=== PATIENT | female | born 1990 | race Caucasian/White ===

== ENCOUNTER 2022-04-07 15:41 | Emergency (ER) | payer MEDICAID, SELFPAY ==
[2022-04-07] VITALS (7 sets, daily range): BP systolic 128–155; BP diastolic 88–106; PULSE 89–112; RESP 18–20; TEMP 36.6–36.7; O2SAT 98–100; BMI 30.1
--- NOTE | 2022-04-07 16:11 | XR_ITS ---
FINAL REPORT CLINICAL HISTORY: recent sternotomy, drainage COMPARISON: 09/14/2019 FINDINGS: SINGLE-VIEW CHEST There is cardiomegaly. The patient is status post median sternotomy. There are small pleural effusions with mild right base atelectasis There is no pneumothorax. IMPRESSION: Small pleural effusions with right base atelectasis. Reviewed, Interpreted and Dictated by Puneet Trujillo III, MD Transcribed by Lolita Cespedes Authenticated and [facility]
--- NOTE | 2022-04-07 16:22 | PC.NURSE ---
faxed request to [facility] for medical records
--- NOTE | 2022-04-07 16:40 | ECG_ITS ---
APPROVED REPORT Exam: Resting ECG HR:104 bpm ECG Measurements Heart Rate 104 AXES ID 149 P -16 QRSd 68 QRS 12 QT 338 T -63 QTc 399 Conclusion SINUS TACHYCARDIA LOW QRS VOLTAGE IN PRECORDIAL LEADS Late r wave progression ABNORMAL ECG UNCONFIRMED REPORT Electronically signed by : Isacc Abernathy MD 04/07/2022 21:55:05
[2022-04-07 16:50] LABS: Chloride 107 mmol/L (98-107); Sodium 141 mmol/L (136-145)
[2022-04-07 16:53] LABS: Alanine Aminotransferase 37 U/L (12-78); Albumin Level 3.4 g/dl (3.5-5.0); Alkaline Phosphatase 100 U/L (38-126); Aspartate Amino Transferase 33 U/L (14-36); Bilirubin,Total 0.2 mg/dl (0.2-1.3); Blood Urea Nitrogen 11 mg/dl (7-17); Calcium 8.4 mg/dl (8.4-10.2); Carbon Dioxide 28 mmol/L (22.0-30.0); Creatinine Clearance Estimated 235 mL/min (50-200); Estimated Glomerular Filt Rate 146 ml/min (>60); GFR (African American) 177 ML/MIN (>60); Globulin 3.4 g/dL (1.3-3.2); Glucose 97 mg/dl (74-100); Lactic Acid 1.4 mmol/L (0.7-2.1); Total Protein,Serum 6.8 g/dl (6.3-8.2)
[2022-04-07 16:58] LABS: C-Reactive Protein 9.8 mg/L (0-4)
[2022-04-07 17:04] LABS: NT Pro Brain Natriuretic Pep. 789 pg/mL (0-125)
--- NOTE | 2022-04-07 17:14 | HMH.EDGENADL ---
Discharge Plan Disposition Patient Disposition: Left Against Medical Advice Condition: Good Prescriptions Prescriptions: New sulfamethoxazole-trimethoprim 800-160 mg tablet 1 tab PO Q12H 14 Days Qty: 28 0RF No Action quetiapine 25 MG tablet 10 mg PO DAILY hydroxyzine pamoate 25 MG capsule 5 mg PO DAILY Referrals Follow up/Referrals: Provider,Referral, [Primary Care Provider] - See instructions Activity Restrictions/Add. Instructions Additional Instructions/Restrictions: You were evaluated in the emergency department today. You were advised to stay in the hospital for IV antibiotics pending your blood cultures. Please supervisor opening and picking your prescription for antibiotic since you are choosing to leave AGAINST MEDICAL ADVICE. Follow-up outpatient with your primary care provider and your automatic shirring machine operator over the next 48 hours. Return to the emergency department for any new or worsening symptoms. Clinical Impressions Clinical Impression: Dehiscence of internal surgical incision, IVDU (intravenous drug user) Discharge ED Provider: Yancy Smith General Adult HPI General Chief complaint: Weakness Stated complaint: CHUNG, post op 03/29 stich came out Time Seen by Provider: 04/07/22 16:08 Mode of Arrival: Ambulatory Source of Information: Patient, Significant Other and Relative Limitations: No Limitations Description of Symptoms (Recalled from ER Triage Doc. by RN): Pt reports one of stitches came out lastnight from a surgery she had on 03/27/22. Pt reports had a surgery on her heart valve at [facility]. Pt has a sternotomy inscision noted, clean, dry, no drainage or redness noted. Pt has stitches in epigastric area with ss drainage noted on dressing, no active bleeding noted. Pt has [address] from previous chest tubes from surgery. One of the stitches has come untied. History of Present Illness HPI narrative: This patient is a 31-year-old female with a history of IV drug abuse, endocarditis status post open heart surgery recently with [facility] presented to the emergency department for evaluation of drainage from a prior mediastinal chest tube site. Patient states that she was at [facility] for approximately a month. She cannot remember when exactly she went in, and she cannot remember when her surgery was. She also cannot remember when the chest tubes were pulled. She states that she left several days ago and had been doing well at home. She left AGAINST MEDICAL ADVICE because she was feeling homesick. She states that they wanted her to stay there because she was on IV antibiotics, but she elected to leave AGAINST MEDICAL ADVICE. They did not send her home with any prescriptions according to the patient, and she has not been taking any medications at home. She states she has been doing well with no fevers, chills, chest pain, shortness of breath, abdominal pain, nausea, vomiting, changes in bowel movements, increasing swelling, or other concerns. She states that she is coming in today because her suture broke and one of her mediastinal chest tube sites and she has had serosanguineous drainage from the site. She has not yet followed up outpatient. Related Data Home Medications Medication Instructions Recorded Confirmed hydroxyzine pamoate 25 mg capsule 5 mg PO DAILY nerves 09/14/19 09/14/19 quetiapine 25 mg tablet 10 mg PO DAILY sleeping 09/14/19 09/14/19 Previous Rx's Medication Instructions Recorded sulfamethoxazole 800 1 tab PO Q12H 14 days #28 tabs 04/07/22 mg-trimethoprim 160 mg tablet Allergies Allergy/AdvReac Type Severity Reaction Status Date / Time PCN (PENICILLIN) Allergy Intermediate I-RASH Uncoded 06/07/17 14:55 Amoxicillin Allergy Unknown Uncoded 06/07/17 14:55 Azithromycin Allergy Unknown Uncoded 06/07/17 14:55 Clarithromycin Allergy Unknown Uncoded 06/07/17 14:55 PFSH PFSH Social History Smoking Status: Current e
[2022-04-07 17:23] LABS: Basophils # 0.1 K/mm3 (0-0.2); Basophils % 0.8 % (0.1-2.0); Eosinophils # 1.3 K/mm3 (0.0-0.4); Eosinophils % 12.4 % (0.1-12.0); Hematocrit 29.5 % (37.0-47.0); Lymphocytes # 2.2 K/mm3 (0.7-4.5); Lymphocytes % 21.5 % (10-50); Mean Corpuscular HGB Conc 30.7 g/dL (31.8-35.4); Mean Corpuscular Hemoglobin 29.6 pg (27.0-31.2); Mean Corpuscular Volume 96.5 fl (81-99); Mean Platelet Volume 8.3 fl (7.4-10.4); Monocytes # 0.8 K/mm3 (0.1-1.0); Monocytes % 8.1 % (1.7-9.3); Neutrophils # 5.8 K/mm3 (1.8-7.8); Neutrophils % 57.2 % (37.0-80.0); Platelet Count 630 K/mm3 (142-424); Procalcitonin 0.042 ng/mL (0.0-2.0); Red Blood Count 3.05 M/mm3 (4.20-5.40); Red Cell Distribution Width 15.8 % (11.5-17.5); White Blood Count 10.1 K/mm3 (4.8-10.8)
--- NOTE | 2022-04-07 18:17 | PC.NURSE ---
Asked ER MD about POC, ER MD states will be placing orders for IV antibiotics. checked on pt at this time, pt resting in bed, lights off in room. Call light within reach. Pt states no needs at this time. Notified pt that ER MD is going to start pt on IV antibiotics and we are waiting on records from [facility]. pt verbalized understanding but was upset, states she is just wanting to be at home. will continue to monitor
--- NOTE | 2022-04-07 18:50 | PC.NURSE ---
waiting operations boardman back from hospitalist
--- NOTE | 2022-04-07 19:43 | PC.NURSE ---
report given to bryonrn
== END 2022-04-07 20:15 | disposition left against medical advice (07) ==
PROVIDERS: Emergency Provider Emergency Medicine
DX: T81.31XA Disruption of external operation (surgical) wound, not elsewhere classified, initial encounter (principal); I97.89 Other postprocedural complications and disorders of the circulatory system, not elsewhere classified; Z53.29 Procedure and treatment not carried out because of patient's decision for other reasons; Z91.199 Patient's noncompliance with other medical treatment and regimen due to unspecified reason; F19.11 Other psychoactive substance abuse, in remission
CPT/HCPCS: 12001; 71045; 80053; 83605; 83880; 84145; 84484; 85025; 86140; 87040; 93005; 99284

== ENCOUNTER 2023-01-03 18:49 | Outpatient (CLI) | payer MEDICAID, SELFPAY ==
--- NOTE | 2023-01-03 18:58 | PC.NURSE ---
PT PRESENTS TO ED FOR ABDOMINAL PAIN FROM PRISON. NO CARE. REPORTS + TEST. UPON ARRIVAL REPORTS LEAKING OF FLUID. FHTS AT THIS TIME 148-157, NOTED LEAKING OF FLUID. REPORT CALLED TO BRISEIDA THOMAS IN OB. PT TO OB VIA WC AT THIS TIME
[2023-01-03 19:20] VITALS: BMI 28.9
[2023-01-03 19:30] VITALS: BP 138/69; PULSE 85; RESP 18; TEMP 36.8; O2SAT 97; BMI 28.9
[2023-01-03 19:36] LABS: Microscopic, Urine URINE MICROSCOPIC (MICROSCOPIC)
[2023-01-03 19:41] LABS: Appearance,Urine CLEAR (Clear); Bilirubin,Urine Negative (Negative); Blood, Urine Negative (Negative); Color,Urine YELLOW (Yellow); Glucose,Urine (UA) Negative (Negative); Ketones,Urine Negative (Negative); Leukocyte Esterase,Urine 2+ (Negative); Nitrate,Urine Negative (Negative); Protein,Urine Negative (Negative); Specific Gravity, Urine <= 1.005 (1.005-1.030); Urobilinogen,Urine 0.2 EU/dl (0.2)
[2023-01-03 19:49] LABS: Fetal Membrane Rupture (Rapid) Negative (Negative)
[2023-01-03 19:51] LABS: Bacteria,Urine Trace /lpf
[2023-01-03 19:57] LABS: Amphetamine/Metha Screen,Urine Positive ng/ml (<1000)
[2023-01-03 19:58] LABS: Barbiturates Screen,Urine Negative ng/ml (<200)
[2023-01-03 19:59] LABS: Benzodiazepines Screen,Urine Negative ng/ml (<200); Cannabinoid Screen,Urine Negative ng/ml (<50)
[2023-01-03 20:00] LABS: Methadone Screen,Urine Negative ng/ml (<300)
[2023-01-03 20:01] LABS: Opiate Screen,Urine Negative ng/ml (<300)
[2023-01-03 20:02] LABS: Phencyclidine Screen,Urine Negative ng/ml (<25)
[2023-01-03 20:06] LABS: Cocaine Screen,Urine Negative ng/ml (<300)
== END 2023-01-03 20:30 | disposition home or self-care (01) ==
LOC: OBOUT 19:11 → OB 19:11
PROVIDERS: Visit Provider Nurse Practitioner Obstetrics & Gynecology
DX: O26.892 Other specified pregnancy related conditions, second trimester (principal); Z3A.27 27 weeks gestation of pregnancy
CPT/HCPCS: 80305; 81001; 84112; 87086; G0463

== ENCOUNTER 2023-03-25 00:22 | Inpatient (IN) | payer MEDICAID, SELFPAY ==
--- OUTSIDE RECORDS SUMMARY | 2023-03-25 00:25 | XMS_ITS | Clinical Summary ---
Author Name Unknown Address [address] [place] [address] Phone Organization [facility] Address [address] [place] [address] Phone Care Team Providers Care Group Cio Name Role Phone Unavailable Unavailable Conditions or Problems No information available. Medications No information available. Medications Administered No information available. Allergies, Adverse Reactions, Alerts No information available. Results No information available. Plan of Care No information available. Procedures No information available. Vital Signs No information available. Immunizations No information available. Advance Directives No information available.
[2023-03-25 00:45] VITALS: BMI 32.3
[2023-03-25 00:59] LABS: Basophils % 0.2 % (0.1-2.0); Eosinophils # 0.4 K/mm3 (0.0-0.4); Eosinophils % 2.7 % (0.1-12.0); Hematocrit 33.8 % (37.0-47.0); Hemoglobin 10.7 g/dL (12.2-16.2); Lymphocytes # 2.9 K/mm3 (0.7-4.5); Lymphocytes % 21.9 % (10-50); Mean Corpuscular HGB Conc 31.7 g/dL (31.8-35.4); Mean Corpuscular Hemoglobin 28.6 pg (27.0-31.2); Mean Corpuscular Volume 90.3 fl (81-99); Monocytes # 0.7 K/mm3 (0.1-1.0); Monocytes % 4.9 % (1.7-9.3); Neutrophils # 9.4 K/mm3 (1.8-7.8); Neutrophils % 70.3 % (37.0-80.0); Platelet Count 341 K/mm3 (142-424); Red Blood Count 3.74 M/mm3 (4.20-5.40); Red Cell Distribution Width 14.1 % (11.5-17.5); White Blood Count 13.3 K/mm3 (4.8-10.8)
[2023-03-25 01:02] LABS: Microscopic, Urine URINE MICROSCOPIC (MICROSCOPIC)
[2023-03-25 01:09] LABS: Appearance,Urine CLEAR (Clear); Bilirubin,Urine Negative (Negative); Blood, Urine Negative (Negative); Color,Urine YELLOW (Yellow); Glucose,Urine (UA) Negative (Negative); Ketones,Urine Negative (Negative); Leukocyte Esterase,Urine Negative (Negative); Nitrate,Urine Negative (Negative); Protein,Urine Negative (Negative); Urobilinogen,Urine 0.2 EU/dl (0.2)
[2023-03-25 01:16] LABS: Squamous Epithelial Cell,Urine Occasional #/hpf (0-5); WBC,Urine Occasional #/hpf (0-3)
[2023-03-25 01:20] VITALS: BP 136/83; PULSE 85; RESP 18; TEMP 37.1; O2SAT 98; BMI 32.3
[2023-03-25 01:22] LABS: Phencyclidine Screen,Urine Negative ng/ml (<25)
[2023-03-25 01:29] LABS: Amphetamine/Metha Screen,Urine Negative ng/ml (<1000); Barbiturates Screen,Urine Negative ng/ml (<200)
[2023-03-25 01:30] LABS: Benzodiazepines Screen,Urine Negative ng/ml (<200)
[2023-03-25 01:31] LABS: Cannabinoid Screen,Urine Positive ng/ml (<50); Cocaine Screen,Urine Negative ng/ml (<300)
[2023-03-25 01:32] LABS: Methadone Screen,Urine Negative ng/ml (<300)
[2023-03-25 01:33] LABS: Opiate Screen,Urine Negative ng/ml (<300)
--- NOTE | 2023-03-25 03:02 | EXP.ANES.CKL ---
[facility] Disclaimer: The information contained in this section may have been updated after the patient was seen, as this information can be updated by other users. Medical History Dyspnea Surgical History History of open heart surgery History of open heart surgery History of tricuspid valve repair Social History Smoking Status: Current every day smoker alcohol intake: former substance use type: former substance user current occupational status: unemployed Travel in the last 8 weeks: None [facility] Anesthesia Checklist Patient Identification Patient Identification: Arm Band and Verbal (Name & ) Structural Data Admitted From: Inpatient Planned Operative Procedure/s: Labor epidural Consent for Planned Operative Procedure(s) Verified: Yes NPO Status Verified Time NPO: 03:00 Chart Verification Results Verified: CBC Airway Assessment Mallampati Score:: Class I C-Spine Mobility Assessed: Yes TMJ Mobility Assessed: Yes Dentition: Poor Dentition Neurological Assessment Level of Consciousness: Awake Hx Seizures: No Numbness or tingling in extremities: No Anesthesia Plan Anesthesia Risk discussed: Yes Anesthesia Plan: Verified ASA Class: III Anesthesia Type: Epidural
--- NOTE | 2023-03-25 08:51 | EXP.OB.APHP ---
OB - H&P: HPI Antepartum History of Present Illness Chief complaint: Leakage of fluid History of present illness: Ms Lena Carver is a 38 yo at 39w2d by LMP. She reports she started leaking fluid around 2300 last night, 03/24/23. She admits she starting lynda intermittently yesterday and contractions increased after leakage of fluid. [facility] History of x 2. She does not have custody of her other two children, they are in foster care. She admits to history of drug use for which she was incarcerated for at one time. She states she last used methamphetamine about 3 months ago. She does smoke cigarettes, 1/2 ppd and use Marijuana. 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 Upon arrival to L&D she was grossly ruptured, clear fluid. History of Present Criteria for establishing EDC:: based on LMP only care: none Ultrasounds: none Labs Blood type: A (+) positive Rubella: unknown RPR/VDRL: unknown GBS status: unknown HBsAG: unknown [facility] Disclaimer: The information contained in this section may have been updated after the patient was seen, as this information can be updated by other users. Medical History (Updated 03/25/23 @ 09:01 by Maria Luz Lugo DO) 39 weeks gestation of Drug use affecting Dyspnea No care in current Spontaneous onset of labor Spontaneous rupture of amniotic membranes Tobacco use affecting , antepartum Surgical History History of open heart surgery History of open heart surgery History of tricuspid valve repair Social History Smoking Status: Current every day smoker alcohol intake: former substance use type: former substance user current occupational status: unemployed Travel in the last 8 weeks: None Review of Systems Review of Systems Review of systems:: pertinent systems reviewed and negative unless documented below *Musculoskeletal Comments: + chronic hip pain Meds Home Medications and Allergies Home Medications Medication Instructions Recorded Confirmed Type No Known Home Medications 03/25/23 03/25/23 History New Prescriptions to Start Prescriptions: Allergies Allergy/AdvReac Type Severity Reaction Status Date / Time PCN (PENICILLIN) Allergy Intermediate I-RASH Uncoded 04/23/22 11:52 Amoxicillin Allergy Unknown Uncoded 04/23/22 11:52 Azithromycin Allergy Unknown Uncoded 04/23/22 11:52 Clarithromycin Allergy Unknown Uncoded 04/23/22 11:52 OB - H&P: Exam Physical Exam Vital signs: Temp Pulse Resp BP Pulse Ox O2 Del Method 98.8 F 85 18 136/83 98 Room Air 03/25/23 01:20 03/25/23 01:20 03/25/23 01:20 03/25/23 01:20 03/25/23 01:20 03/25/23 01:20 Routine HEENT Exam Head: Present normocephalic and atraumatic Eye: Absent conjunctivae pink ENT: Present mucous membranes moist Routine Neck Exam Present full ROM Routine Respiratory Exam Present CTA bilaterally and normal respiratory effort Routine Cardiovascular Exam Present RRR Routine Abdominal Exam Present soft (Gravid); Absent tenderness Routine Rectal Exam Patient deferred: visual exam Routine Exam External: Present normal urethra appearance; Absent erythema, tenderness, lesions or lacerations Routine Extremities Exam Present full ROM; Absent edema or calf tenderness Routine Neurological Exam Present alert, oriented X3 and moving all extremities Routine Psychiatric Exam Present normal affect and cooperative Detailed Labor and Delivery Exam Dilation (cm): 5 Effacement (%): 80 Cervix position: mid station: -2 Membranes: spontaneously ruptured (2300 on 03/24/23) Amniotic fluid: clear Baseline heart rate: 130 monitor accelerations: Present
--- NOTE | 2023-03-25 12:39 | EXP.DN ---
Delivery Note Delivery Date:: 03/25/23 Delivery Time:: 12:14 Anesthesia Type: Epidural Was labor medically induced?: No Gestational age (weeks): 39 Infant delivered prior to 39 weeks?: No Gender: Female at 1 minute: 8 at 5 minutes: 9 Delivery Procedure:: Mom complete with epidural. Pushed for approximately 2 minutes. Head delivered spontaneously over intact perineum in LOT position. No nuchal cord. Anterior shoulder delivered with gentle downward pressure. Posterior shoulder and remainder of body delivered spontaneously. Baby placed on maternal abdomen, mouth and nares bulb suctioned, warmed/dried and stimulated. Delayed cord clamping was performed for 60 seconds. Cord was clamped and cut by mom. Cord blood was obtained. Placenta delivered spontaneously and intact. Placenta will be sent to pathology for review. Bilateral periurethral abrasions noted and hemostatic. Mom and baby were doing well after delivery. Live female baby (baby's name is Caitlyn) APGARs 8, 9 EBL 100 mL Placental Delivery Description: Spontaneous
--- NOTE | 2023-03-25 13:48 | SW/DCPLANNER ---
Addendum entered by Mel Nelson 04/04/23 11:18: I have updated Raysa w/ regarding cord screen: positive for THC. Addendum entered by Mel Belcher 03/29/23 10:42: Raysa Calculating Machine Operator w/ NICU has called and asked for CORD screen results once returned. Raysa phone number: [phone] Addendum entered by Mel Belcher 03/28/23 09:11: Per OB nursing staff (Rica) was transferred to and staff was updated regarding social situation. Original Note: I received a consult on this patient regarding: no care, incarcerated during -currently released, history of drug use and does not have custody of other children. Patient tested positive for THC on delivery 03/25/23. Patient admits to THC use within the last week. Patient admits to meth use during and stated last time using meth was roughly 90 days ago. Patient delivered female (Caitlyn Calero) on 03/25/23. 's father was present at the time of my visit: Kenny Calero 09/07/75. Patient, Kenny and will reside at [address] [place] [address]. Patient's contact number is [phone]. Patient stated that she does not have custody of her first and second child due to drug use. Patient will be established w/ WIC. Patient stated that she has the following items at home: crib, carseat, clothing, diapers and will be bottle feeding. Patient stated that PED MD is Dr Mendes and she will have transportation to all follow up appointments. Patient stated that she did not have any visits due to being in and out of child for child support, did have some care at [facility] and stated used vitamins from [facility] . Patient is not currently enrolled in any type of programs. I am currently waiting for a urine drug screen on prior to making a Central Intake report. I have updated OB staff (Rica).
--- NOTE | 2023-03-25 16:10 | EXP.DC.SUM ---
General Admission date:: 03/25/23 Discharge date: 03/25/23 HPI HPI HPI: PPD # 0 s/p She is feeling well. Pain controlled. Appropriate lochia. Formula feeding. Voiding without difficulty and passing flatus. No fever/chills, chest pain or shortness of breath. Denies headaches, vision changes, lightheadedness/dizziness. Ambulating well ad rodger. Hospital Course Hospital Course Hospital Course: Ms Lena Carver is a 38 yo at 39w2d by LMP. She reports she started leaking fluid around 2300 last night, 03/24/23. She admits she starting lynda intermittently yesterday and contractions increased after leakage of fluid. [facility] History of x 2. She does not have custody of her other two children, they are in foster care. She admits to history of drug use for which she was incarcerated for at one time. She states she last used methamphetamine about 3 months ago. She does smoke cigarettes, 1/2 ppd and use Marijuana. 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 Upon arrival to L&D she was grossly ruptured, clear fluid. She had a normal spontaneous vaginal delivery on 03/25/23 at 1214. She delivered a live female baby, Caitlyn, weighing 6 lb 9 oz. APGARs 8, 9. EBL 100 mL. She was doing well after delivery. Pain controlled. Light lochia. She was ambulating well ad rodger. She took a shower after delivery. Vital signs stable, afebrile. Tolerating regular diet. Voiding without difficulty and passing flatus. Baby transferred to for unknown HIV status of mother. Lena requests to be discharged today to go with baby. Follow-up in the office in 2 weeks or sooner if needed. Exam Data for Last 24 hours Vital signs and Labs for Last 24 Hours: Temp Pulse Resp BP Pulse Ox O2 Del Method 98.8 F 85 18 136/83 98 Room Air 03/25/23 01:20 03/25/23 01:20 03/25/23 01:20 03/25/23 01:20 03/25/23 01:20 03/25/23 01:20 Laboratory Results - last 24 hr 03/25/23 00:36: WBC 13.3 H, RBC 3.74 L, Hgb 10.7 L, Hct 33.8 L, MCV 90.3, MCH 28.6, MCHC 31.7 L, RDW 14.1, Plt Count 341, MPV 10.0, Neut % (Auto) 70.3, Lymph % (Auto) 21.9, Mckinley % (Auto) 4.9, Eos % (Auto) 2.7, Baso % (Auto) 0.2, Neut # (Auto) 9.4 H, Lymph # (Auto) 2.9, Mckinley # (Auto) 0.7, Eos # (Auto) 0.4, Baso # (Auto) 0.0, Blood Type A Positive, Antibody Screen Negative 03/25/23 00:50: Urine Color Yellow, Urine Appearance Clear, Urine pH 7.0, Ur Specific [place] 1.010, Urine Protein Negative, Urine Glucose (UA) Negative, Urine Ketones Negative, Urine Blood Negative, Urine Nitrate Negative, Urine Bilirubin Negative, Urine Urobilinogen 0.2, Ur Leukocyte Esterase Negative, Urine RBC None, Urine WBC Occasional, Ur Squamous Epith Cells Occasional, Urine Bacteria None, Urine Opiates Screen Negative, Urine Methadone Screen Negative, Ur Barbituates Screen Negative, Ur Phencyclidine Scrn Negative, Ur Amphetamines Screen Negative, U Benzodiazepines Scrn Negative, Urine Cocaine Screen Negative, U Marijuana (THC) Screen Positive H I & O for Last 24 hours: Intake & Output 03/22/23 03/23/23 03/24/23 03/25/23 23:59 23:59 23:59 23:59 Weight 200 lb Constitutional Constitutional: no acute distress *Routine HEENT Exam Head: Present normocephalic and atraumatic Eye: Absent conjunctivae pink ENT: Present mucous membranes moist *Routine Respiratory Exam Respiratory: Present CTA bilaterally and normal respiratory effort *Routine Cardiovascular Exam Cardiovascular: Present RRR *Routine Abdominal Exam Abdominal: Present soft and normoactive bowel sounds; Absent tenderness or distended Comments: Uterine fundus firm and below umbilicus *Routine Rectal Exam Patient deferred: visual exam *Routine Exam Patient deferred: external exam *Routine Extremities Exam Extremities: Present full ROM; Absent edema or calf tenderness *Routine Neurological Exam Neurological: Present al
[2023-03-26 08:05] LABS: HIV Screen 4th Generation wRfx Non Reactive (Non Reactive); Hepatitis B Surface Antigen Negative (Negative)
[2023-03-26 08:19] LABS: Rubella Antibodies, IgG 1.33 index (Immune >0.99)
[2023-03-26 11:55] LABS: Rapid Plasma Reagin Ab Titer Non Reactive titer (NonRea<1:1)
== END 2023-03-25 18:25 | disposition home or self-care (01) | DRG 807 ==
PROVIDERS: Admitting Provider Nurse Practitioner Obstetrics & Gynecology; Visit Provider Nurse Practitioner Obstetrics & Gynecology
DX: O99.334 Smoking (tobacco) complicating childbirth (principal); Z37.0 Single live birth; Z3A.39 39 weeks gestation of pregnancy; O99.324 Drug use complicating childbirth; F17.210 Nicotine dependence, cigarettes, uncomplicated
CPT/HCPCS: 59409; 59025; 80305; 81001; 85025; 86593; 86762; 86850; 87340; J2405